=== PATIENT | female | born 1960 | race African-American/Black ===

== ENCOUNTER 2017-03-09 09:08 | Outpatient (RCR) | payer OTHER ==
--- NOTE | 2017-03-09 21:45 | Consultation ---
DATE OF CONSULTATION: 03/09/2017 HYPERBARIC OXYGEN CONSULTATION CONSULTING PHYSICIAN: Tello Arzola M.D. REASON FOR CONSULTATION: Hyperbaric oxygen evaluation. HISTORY OF PRESENT ILLNESS: The patient is a 56-year-old pleasant female who has had an amputation of her right great toe. The patient with evidence of poor healing with failed flap. The patient has tired outpatient medical management, which has failed. The patient has been evaluated for hyperbaric oxygen intervention. PAST MEDICAL HISTORY: Notable for vertigo and tinnitus. PAST SURGICAL HISTORY: The patient does have a history of smoking and history of social alcohol use. SOCIAL HISTORY: The patient is employed. REVIEW OF SYSTEMS: Notable for claustrophobia, mild sinus disease. PHYSICAL EXAMINATION: GENERAL: A well-developed female, comfortable. VITAL SIGNS: Blood pressure 140/77, pulse 69, and temperature 98.1. HEENT: Tympanic membranes are clear. Oropharynx is clear. LUNGS: Clear. CARDIAC: Normal S1 and S2. Regular rate and rhythm. EXTREMITIES: The right foot with right great toe amputation with flap notable for 1.2 x 0.4 x 0.9. IMPRESSION: 1. Failed flap. 2. Status post amputation right great toe. 3. Vertigo. 4. Sinus disease. RECOMMENDATION: The patient appears to be an appropriate candidate for hyperbaric oxygen. At present, we would proceed with 20 treatments at 2 atmospheres and 90 minute intervals. We would recommend ongoing wound care and we would follow up for further recommendations and possibly further hyperbaric treatments thereafter. Tello Arzola M.D. DR: MAKEDA JOB#: [id number] [facility]: [facility]
== END 2017-04-03 | disposition home or self-care (01) ==
LOC: WCC 09:08
DX: T86.821 Skin graft (allograft) (autograft) failure (principal); Z89.411 Acquired absence of right great toe; E11.42 Type 2 diabetes mellitus with diabetic polyneuropathy; Z96.653 Presence of artificial knee joint, bilateral
CPT/HCPCS: G0277; G0463; 99204